=== PATIENT | female | born 1980 | race Caucasian/White ===

== ENCOUNTER 2024-01-21 07:27 | Emergency (ER) | payer OTHER ==
[2024-01-21 07:37] VITALS: BP 103/70; PULSE 76; RESP 18; TEMP 98.4; BMI 25.0
[2024-01-21] MEDS ORDERED: FAMOTIDINE 20 MG TABLET ONE (07:53)
[2024-01-21] MEDS ORDERED: LORATADINE 10 MG TABLET ONE (07:54)
[2024-01-21] MEDS: LORATADINE 10 MG TABLET PO ONE (07:57)
[2024-01-21] MEDS: FAMOTIDINE 10 MG TABLET PO ONE (07:57)
[2024-01-21] MEDS ORDERED: DEXAMETHASONE 4 MG TABLET (FP) ONE (09:03)
[2024-01-21] MEDS: DEXAMETHASONE 4 MG TABLET (FP) PO ONE (09:07)
== END 2024-01-21 09:34 | disposition home or self-care (01) ==
LOC: JER 07:27
DX: R22.0 Localized swelling, mass and lump, head (principal); L29.9 Pruritus, unspecified; T49.8X5A Adverse effect of other topical agents, initial encounter
CPT/HCPCS: 99283-25